=== PATIENT | female | born 1995 | race Caucasian/White ===

== ENCOUNTER 2024-05-16 19:49 | Emergency (ER) | payer BC ==
[2024-05-16] MEDS ORDERED: HYDROcodone/Acetaminophen 5/325 mg Tablet ONE (22:15)
[2024-05-17] MEDS ORDERED: Bacitracin 1 PK ONE (00:16)
== END 2024-05-17 00:35 | disposition home or self-care (01) ==
LOC: CSHERS 19:49
DX: S01.81XA Laceration without foreign body of other part of head, initial encounter (principal); S80.211A Abrasion, right knee, initial encounter; W01.0XXA Fall on same level from slipping, tripping and stumbling without subsequent striking against object, initial encounter
CPT/HCPCS: 12013; 99283